=== PATIENT | male | born 2000 | race Caucasian/White ===

== ENCOUNTER 2022-08-12 11:39 | Outpatient (CLI) | payer BC, SELFPAY ==
[2022-08-12 15:28] LABS: SARS PCR* Negative SARS-CoV-2 (Negative)
== END 2022-08-12 11:40 | disposition home or self-care (01) ==
LOC: KYNREF 11:39
PROVIDERS: PCP Family Medicine; Visit Provider Nurse Practitioner Family
DX: Z20.822 Contact with and (suspected) exposure to COVID-19 (principal); R05.9 Cough, unspecified; R06.2 Wheezing
CPT/HCPCS: 87635